=== PATIENT | male | born 1955 | race Caucasian/White ===

== ENCOUNTER 2021-06-27 18:08 | Emergency (ER) | payer OTHER ==
--- OUTSIDE RECORDS SUMMARY | 2021-06-27 18:11 | XMS REPORT | Continuity of Care Document ---
:1955 Author Organization [facility] t Address [address] [place] [address] [address]. Vas[address] [place] [address] Care Team Providers Name Role Phone Min Attending Clinician Unavailable Ning Attending Clinician [phone] JACKIE Attending Clinician Unavailable Ning_Katy Admitting Clinician Unavailable Payers Payer Name Policy Type Policy Number Effective Date Expiration Date S viktor MEDICARE [place]: [id number] 2018 [place]anger 00:00:00 Problems This patient has no known problems. Allergies, Adverse Reactions, Alerts This patient has no known allergies or adverse reactions. Medications This patient has no known medications. Procedures This patient has no known procedures. Encounters Start End Encounter Admission Attending Care Care Encounter Source Date/Time Date/Time Type Type Clinicians Facility Department ID 2021-02-23 2021-02-[address] [facility] [id number] NPI:124 01:52:00 01:52:00 [id number] 2021-02-01 2021-02-[address] [facility] [id number] NPI:124 12:58:00 12:58:00 [id number] 2021-02-01 2021-02-[address] [facility] [id number] 00:00:00 00:00:00 Cem [id number] 2021-02-01 2021-02-01 Outpatient NING [facility] [id number] [place] 00:00:00 00:00:00 [facility] 2020-12-02 2020-12-02 Outpatient [facility] [id number] [place] 00:00:00 00:00:[address] 2020-08-21 2020-08-21 Outpatient [id number] NPI:124 12:57:00 12:57:00 [id number] 2020-08-03 2020-08-03 Outpatient Ning_[id number] NPI:124 12:53:00 12:53:00 [id number] 2020-08-03 2020-08-03 Out[place] [facility] [id number] 00:00:00 00:00:00 Cem [id number] 2020-08-03 2020-08-03 Outpatient NING [facility] [id number] [place] 00:00:00 00:00:00 CEM [address] 2020-07-28 2020-07-28 Outpatient Ning_M [facility] [id number] NPI:124 06:18:00 06:18:00 [id number] 2020-05-23 2020-05-23 Outpatient JACKIE [facility] [id number] [place] 00:00:00 00:00:00 TITO 609 Or thodi 2020-04-29 2020-04-29 Outpatient [facility] [id number] [place] 00:00:00 00:00:[address] 2020-01-28 2020-01-28 Outpatient NING [facility] [id number] [place] 00:00:00 00:00:00 CEM [address] 2019-08-06 2019-08-06 Outpatient NING [facility] [id number] [place] 00:00:00 00:00:00 CEM [address] Results This patient has no known results.
[2021-06-27] MEDS ORDERED: IBUPROFEN 400 MG TAB ONE (19:43)
--- NOTE | 2021-06-27 20:03 | EDPHYS ---
Physician Documentation [facility] Name: Radu Zuñiga Age: 65 yrs Sex: Male : 1955 Arrival Date: 06/27/2021 Time: 18:11 Bed 18 Private MD: ED Physician Satya Betts HPI: 06/27 18:30 This 65 yrs old Male presents to ER via Ambulatory with complaints of Sore Throat. jmm 18:30 The patient presents with sore throat. Onset: The symptoms/episode began/occurred jmm gradually, 1 day(s) ago. Modifying factors: The symptoms are alleviated by nothing, the symptoms are aggravated by nothing. Associated signs and symptoms: Pertinent positives: chills. This is a 65 year old male with a history of htn, hlp, that presents to the ED with complaints of sore throat, beginning 1 day ago. Complains of chills. . Historical: - Allergies: 18:24 Penicillins; jb4 - PMHx: 18:24 Sleep apnea; HTN; high cholesterol; Kidney stones; jb4 - PSHx: 18:24 Cholecystectomy; jb4 - Immunization history:: Adult Immunizations up to date. - Social history:: Smoking status: Patient denies any tobacco usage or history of. Patient uses alcohol, occasionally. Patient/guardian denies using street drugs. ROS: 18:30 Constitutional: Positive for body aches, chills. jmm 18:30 ENT: Positive for sore throat. 18:30 Respiratory: Positive for cough. 18:30 All other systems are negative. Exam: 18:30 Constitutional: This is a well developed, well nourished patient who is awake, alert, jmm and in no acute distress. Head/Face: atraumatic. Eyes: EOMI, no conjunctival erythema appreciated 18:30 Neck: Trachea midline, Supple Chest/axilla: Normal chest wall appearance and motion. Cardiovascular: Regular rate and rhythm. No edema appreciated Respiratory: Normal respirations, no respiratory distress appreciated Abdomen/GI: Non distended, soft Back: Normal ROM Skin: General appearance color normal MS/ Extremity: Moves all extremities, no obvious deformities appreciated, no edema noted to the lower extremities Neuro: Awake and alert Psych: Behavior is normal, Mood is normal, Patient is cooperative and pleasant 18:30 ENT: Posterior pharynx: erythema, that is moderate. Vital Signs: 18:20 BP 160 / 109; Pulse 88; Resp 18; Temp 98.9(TE); Pulse Ox 100% on R/A; Weight 128.82 kg jb4 (R); Height 5 ft. 11 in. (180.34 cm) (R); Pain 0/10; 20:15 Pain 5/10; ag7 18:20 Body Mass Index 39.61 (128.82 kg, 180.34 cm) jb4 MDM: 18:49 Patient medically screened. [facility] 20:01 Data reviewed: vital signs, nurses notes. Counseling: I had a detailed discussion with [facility] the patient and/or guardian regarding: the historical points, exam findings, and any diagnostic results supporting the discharge/admit diagnosis, lab results, the need for outpatient follow up, to return to the emergency department if symptoms worsen or persist or if there are any questions or concerns that arise at home. ED course: Patient is alert and non toxic in appearance in the ED. Patient advised to follow up with pcp and otherwise given strict return precautions. Patient understood and agrees with the plan of care. . 06/27 18:29 Order name: Strep; Complete Time: 19:05 [facility] 06/27 18:30 Order name: Influenza Screen (a \\T\\ B); Complete Time: 20:07 [facility] 06/27 18:33 Order name: SARS-COV-2 RT PCR (Document "Date of Onset" if Symptomatic); Complete Time: [facility] 20:01 06/27 19:04 Order name: Throat Culture EDMS Administered Medications: 19:41 Drug: Ibuprofen 800 mg Route: PO; ag7 20:15 Follow up: Pain 5/10; Response: No adverse reaction; Pain is decreased ag7 Disposition Summary: 06/27/21 20:03 Discharge Ordered Location: Home [facility] Condition: Stable [facility] Diagnosis - Acute pharyngitis, unspecified [facility] Followup: [facility] - With: Private Physician - When: 2 - 3 days - Reason: Recheck today's complaints, Continuance of care, Re-evaluation by your physician Discharge Instructions: - Discharge Summary Sheet [facility] - Pharyngitis [facility] Forms: - Medication Reconciliation Form [facility] - Thank You Letter [facility] - Antibiotic Education [facility] - Prescription Opioid Use [facility] Prescriptions: - cefdinir 300 mg Oral capsule - take 1 capsule by ORAL route every 12 hours for 10 days; 20 capsule; Refills: ely 0, Product Selection Permitted Addendum: 06/30/2021 07:04 Co-signature as Attending Physician, Satya Betts MD I agree with the assessment and k dr plan of care. Signatures: Dispatcher [employer] EDSatya Stewart MD MD [facility] Juan Franco PA PA Junior Holcomb RN RN jb4 Opal Muniz RN RN ag7 Corrections: (The following items were deleted from the chart) 06/27 18:25 18:24 Allergies: No Known Allergies; alysia jb4
--- NOTE | 2021-06-27 20:03 | ER ---
Nurse's Notes [facility] Name: Radu Zuñiga Age: 65 yrs Sex: Male : 1955 Arrival Date: 06/27/2021 Time: 18:11 Bed 18 Private MD: Diagnosis: Acute pharyngitis, unspecified Presentation: 06/27 18:20 Chief complaint: Patient states: My throat started hurting yesterday. I have been jb4 dealing with a sensitive tooth lately. I am not sure if the two are related. It hurts to swallow anything. Now I am getting a sharp pain under my jaw when I swallow solids. Coronavirus screen: At this time, the client does not indicate any symptoms associated with coronavirus-19. Ebola Screen: No symptoms or risks identified at this time. Initial Sepsis Screen: Does the patient meet any 2 criteria? No. Patient's initial sepsis screen is negative. Does the patient have a suspected source of infection? No. Patient's initial sepsis screen is negative. Risk Assessment: Do you want to hurt yourself or someone else? Patient reports no desire to harm self or others. Onset of symptoms was June 27, 2021. Transition of care: patient was not received from another setting of care. 18:20 Method Of Arrival: Ambulatory jb4 18:20 Acuity: JAE 4 jb4 Historical: - Allergies: 18:24 Penicillins; jb4 - PMHx: 18:24 Sleep apnea; HTN; high cholesterol; Kidney stones; jb4 - PSHx: 18:24 Cholecystectomy; jb4 - Immunization history:: Adult Immunizations up to date. - Social history:: Smoking status: Patient denies any tobacco usage or history of. Patient uses alcohol, occasionally. Patient/guardian denies using street drugs. Screenin:55 Abuse screen: Denies threats or abuse. Nutritional screening: No deficits noted. jb4 Tuberculosis screening: No symptoms or risk factors identified. Fall Risk None identified. Assessment: 18:55 General: Appears in no apparent distress. comfortable, Behavior is calm, cooperative, jb4 appropriate for age. Pain: Denies pain. Neuro: Level of Consciousness is awake, alert, obeys commands, confused, Oriented to person, place, time, situation. Cardiovascular: Patient's skin is warm and dry. Respiratory: Airway is patent Respiratory effort is even, unlabored, Respiratory pattern is regular, symmetrical. GI: No signs and/or symptoms were reported involving the gastrointestinal system. : No signs and/or symptoms were reported regarding the genitourinary system. EENT: Throat is clear is reddened with gag reflex present. Derm: Skin is intact, Skin is pink, warm \T\ dry. 19:41 Reassessment: Patient and/or family updated on plan of care and expected duration. Pain ag7 level reassessed. Patient is alert, oriented x 3, equal unlabored respirations, skin warm/dry/pink. Pain: Complains of pain in throat Pain does not radiate. Pain currently is 7 out of 10 on a pain scale. Quality of pain is described as burning, aching, Pain began suddenly, Is continuous. EENT: Throat is reddened. Vital Signs: 18:20 BP 160 / 109; Pulse 88; Resp 18; Temp 98.9(TE); Pulse Ox 100% on R/A; Weight 128.82 kg jb4 (R); Height 5 ft. 11 in. (180.34 cm) (R); Pain 0/10; 20:15 Pain 5/10; ag7 18:20 Body Mass Index 39.61 (128.82 kg, 180.34 cm) jb4 ED Course: 18:11 Patient arrived in ED. ds1 18:20 Arm band placed on right wrist. jb4 18:24 Triage completed. jb4 18:26 [facility] Franco [facility] is [facility] 18:26 Satya Betts MD is Attending Physician. [facility] 18:55 Patient has correct armband on for positive identification. jb4 19:16 No provider procedures requiring assistance completed. Patient did not have IV access jb4 during this emergency room visit. 19:31 Opal Muniz, DANG is Primary Nurse. ag7 Administered Medications: 19:41 Drug: Ibuprofen 800 mg Route: PO; ag7 20:15 Follow up: Pain 5/10; Response: No adverse reaction; Pain is decreased ag7 Outcome: 20:03 Discharge ordered by . [email or web address] 20:15 Discharged to home ambulatory. ag7 20:15 Condition: stable 20:15 Discharge instructions given to patient, Instructed on discharge instructions, follow up and referral plans. medication usage, Demonstrated understanding of instructions, follow-up care, medications, Prescriptions given X 1. 20:16 Patient left the ED. ag7 Signatures: Juan Franco PA PA jmm Sanford, Demi ds1 Junior Ferrer RN RN jb4 Opal Muniz RN RN ag7 Corrections: (The following items were deleted from the chart) 18:25 18:20 Pulse 88bpm; Resp 18bpm; Pulse Ox 100% RA; Temp 98.9F Temporal; 128.82 kg jb4 Reported; Height 5 ft. 11 in. Reported; BMI: 39.6; Pain 0/10; jb4 18:25 18:24 Allergies: No Known Allergies; jb4 jb4
[2021-06-27 20:22] VITALS: BP 160/109; TEMP 98.9; O2SAT 100
== END 2021-06-27 20:16 | disposition home or self-care (01) ==
LOC: ER 18:08
DX: J02.9 Acute pharyngitis, unspecified (principal); R05.9 Cough, unspecified; I10 Essential (primary) hypertension; Z20.822 Contact with and (suspected) exposure to COVID-19; Z88.0 Allergy status to penicillin
CPT/HCPCS: 87070; 87081; 87804 ×2; 99283; U0003